=== PATIENT | male | born 1930 ===

== ENCOUNTER 2017-08-31 08:51 | Day surgery (SDC) | payer MEDICARE, MEDICAID ==
[2017-08-28 08:09] VITALS: BMI 26.9
[2017-08-31] MEDS ORDERED: Midazolam 2 MG/2 ML VIAL ONE (12:24)
[2017-08-31] MEDS ORDERED: Iodixanol 320 MG/ML 200 ML BOTTLE IV ONE (12:25)
[2017-08-31] MEDS ORDERED: Sodium Chloride 0.9% 500 ML IV SCH (13:15)
--- NOTE | 2017-08-31 21:16 | CARDCATH ---
PROCEDURE DATE: 08/31/2017 INDICATIONS: Fidel Sousa, 86-year-old male referred to [facility] for evaluation of abnormal stress test, symptoms of dyspnea on exertion and history of CABG. PROCEDURE PERFORMED: Left heart catheterization with selective left and right coronary angiogram, selective left internal mammary artery to left anterior descending graft to diagonal, obtuse marginal and right coronary artery angiogram, left ventriculogram, 6-Ethiopian right femoral arterial access, Mynx closure device for hemostasis. TECHNIQUE OF PROCEDURE: After obtaining informed consent, the patient was brought to the cardiac cath suite in post-absorptive, non-sedated state. The patient was prepped and draped in the usual sterile fashion. A 2% lidocaine was used for infiltration of anesthesia. Using modified Seldinger technique, a 6-Ethiopian sheath was introduced into the right femoral artery subsequently over a J-wire. JL4 and JR4 diagnostic catheters were used to engage the left and right coronary systems and angiograms were obtained in different orthogonal views. Subsequently, multipurpose catheters were used to engage the grafts to the RCA, diagonal and OM and elective angiograms were obtained. Subsequently, a BAINS catheter was used to engage the BAINS and selective angiogram of the BAINS to LAD was performed. ANGIOGRAPHIC FINDINGS: [place] coronary artery left main distal 90% stenosis, LAD mid 100%, diagonal high-grade 70%, circumflex 100% occluded, RCA 100% occluded, bypass circulation graft to RCA patent, ostial graft has 80% stenosis, graft to diagonal 1 patent, venous graft to obtuse marginal 1 patent with [place] diffuse OM disease, BAINS to LAD patent, [place] LAD past the touchdown site has diffuse 50% stenosis. 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 RECOMMENDATIONS: Aggressive medical management and risk factor modification. Consider stage intervention of the graft to the RCA. Salvador Mo MD
[2017-09-01 16:20] VITALS: RESP 24; O2SAT 100
== END 2017-08-31 15:45 | disposition home or self-care (01) ==
LOC: C.CATHLAB 08:51
PROVIDERS: ATTEND Internal Medicine Interventional Cardiology
DX: I25.810 Atherosclerosis of coronary artery bypass graft(s) without angina pectoris (principal)
CPT/HCPCS: 93459; 94770; J2250; J3010; J7040; Q9966

== ENCOUNTER 2017-11-17 10:36 | Emergency (ER) | payer MEDICARE, MEDICAID ==
[2017-11-17 10:37] VITALS: BMI 26.9
[2017-11-17 12:17] LABS: BASO % 0.6 % (0.0-2.0); EOS # 0.6 K/uL (0.0-0.7); EOS % 7.4 % (0.0-4.0); HEMOGLOBIN 16.2 g/dL (12.0-18.0); LYMPH # 0.8 K/uL (1.0-4.3); LYMPH % 9.7 % (20.0-40.0); MEAN CELL VOLUME 94.1 fL (80.0-94.0); MEAN CORPUSCULAR HGB CONC 35.1 g/dL (33.0-37.0); MEAN PLATELET VOLUME 7.4 fL (7.2-11.7); MONO # 0.9 K/uL (0.0-0.8); MONO % 10.5 % (0.0-10.0); NEUT # 5.8 K/uL (1.8-7.0); NEUT % 71.8 % (50.0-75.0); PLATELET COUNT 191 K/uL (130-400); RBC 4.92 Mil/uL (4.40-5.90); RED CELL DISTRIBUTION WIDTH 15.3 % (11.5-14.5); WHITE BLOOD COUNT 8.1 K/uL (4.8-10.8)
[2017-11-17 12:27] LABS: SQUAMOUS EPITHIAL < 1 /hpf (0-5); URINE BILIRUBIN NEGATIVE (NEGATIVE); URINE BLOOD NEGATIVE (NEGATIVE); URINE CLARITY Hazy (Clear); URINE COLOR Amber (YELLOW); URINE GLUCOSE (UA) NORMAL (Normal); URINE LEUKOCYTE ESTERASE 2+ Leu/uL (Negative); URINE NITRATE NEGATIVE (NEGATIVE); URINE PROTEIN 1+ mg/dL (NEGATIVE)
[2017-11-17 12:35] LABS: ALB/GLOB RATIO 1.1 (1.0-2.1); ALBUMIN 4.1 g/dL (3.5-5.0); ALT/SGPT 37 U/L (21-72); AST/SGOT 30 U/L (17-59); BLOOD UREA NITROGEN 24 mg/dL (9-20); CALCIUM 9.7 mg/dl (8.6-10.4); GFR AFRICAN-AMERICAN 58; GFR NON-AFRICAN AMERICAN 48
[2017-11-17 12:43] LABS: EOSINOPHIL 1 % (0-4); LYMPHOCYTE 7 % (20-40); MONOCYTE 8 % (0-10); NEUTROPHIL 84 % (50-75); PLATELET ESTIMATE NORMAL (NORMAL); TOTAL CELLS COUNTED 100
[2017-11-17 12:45] LABS: CK-MB 0.59 ng/mL (0.0-3.38)
--- NOTE | 2017-11-17 14:16 | CT ---
PROCEDURE: CT HEAD WITHOUT CONTRAST. HISTORY: Dizziness COMPARISON: None available. TECHNIQUE: Axial computed tomography images were obtained through the head/brain without intravenous contrast. Radiation dose: Total exam DLP = 848.03 mGy-cm. This CT exam was performed using one or more of the following dose reduction techniques: Automated exposure control, adjustment of the mA and/or kV according to patient size, and/or use of iterative reconstruction technique. FINDINGS: HEMORRHAGE: No intracranial hemorrhage. BRAIN: There are mild chronic microangiopathic changes. There is no mass, mass effect or abnormal extra-axial fluid collection. There is no territorial infarction.There are coarse atherosclerotic calcifications in the cavernous carotid arteries. VENTRICLES: There is mild age-related global parenchymal volume loss and proportionate enlargement of the ventricles and cortical sulci. CALVARIUM: The skull base and calvarium are normal. PARANASAL SINUSES: There is scattered mucoperiosteal thickening in the ethmoid air cells, the remaining included paranasal sinuses are predominantly clear MASTOID AIR CELLS: The mastoid air cells are underdeveloped. OTHER FINDINGS: None. IMPRESSION: No acute intracranial abnormality. Mild chronic microangiopathic changes and mild age-related global parenchymal volume loss.
[2017-11-17 14:21] VITALS: BP 130/78; PULSE 65; RESP 18; TEMP 98.3; O2SAT 100
--- NOTE | 2017-11-17 14:43 | C.PDOC ---
History Of Present Illness 86-year-old male, presents to the emergency department with complaints of dizziness while he was at [facility] office this morning. Patient developed sudden onset dizziness, patients held him, he did not lose consciousness or fall to the ground. No loss of consciousness. No head or neck injury. Patient denies nausea/vomiting, chest pain or shortness of breath. No other complaints at this time. Time Seen by Provider: 11/17/17 11:06 Chief Complaint (Nursing): Dizziness/Lightheaded History Per: Patient, Family History/Exam Limitations: no limitations Current Symptoms Are (Timing): Better Past Medical History Reviewed: Historical Data, Nursing Documentation, Vital Signs Vital Signs: Last Vital Signs Temp 98.3 F 11/17/17 14:20 Pulse 65 11/17/17 14:20 Resp 18 11/17/17 14:20 BP 130/78 11/17/17 14:20 Pulse Ox 100 11/17/17 14:46 - Medical History PMH: Arthritis, CHF, HTN, Hypothyroidism Denies: Chronic Kidney Disease Surgical History: CABG (2007), Pacemaker Family History: States: No Known Family Hx - Social History Hx Alcohol Use: No Hx Substance Use: No - Immunization History Hx Tetanus Toxoid Vaccination: Yes Hx Influenza Vaccination: Yes Hx Pneumococcal Vaccination: Yes Review Of Systems Except As Marked, All Systems Reviewed And Found Negative. Constitutional: Negative for: Fever, Chills Cardiovascular: Negative for: Chest Pain Respiratory: Negative for: Shortness of Breath Gastrointestinal: Negative for: Nausea, Vomiting Musculoskeletal: Negative for: Neck Pain, Back Pain Neurological: Positive for: Dizziness. Negative for: Weakness, Numbness, Headache Physical Exam - Physical Exam Appears: Well, Non-toxic, No Acute Distress Skin: Normal Color, Warm, Dry, No Rash Head: Normacephalic Eye(s): bilateral: Normal Inspection, PERRL, EOMI Nose: Normal Oral Mucosa: Moist Lips: Normal Appearing Neck: Normal ROM, No Step Off Deformity Cardiovascular: Rhythm Regular, No Murmur Respiratory: Normal Breath Sounds, No Accessory Muscle Use Extremity: Normal ROM, No Deformity, No Swelling Neurological/Psych: Oriented x3, Normal Speech ED Course And Treatment - Laboratory Results Result Diagrams: 11/17/17 12:08 11/17/17 12:08 O2 Sat by Pulse Oximetry: 100 (RA) Pulse Ox Interpretation: Normal Progress Note: CT Head, EKG, UA and bloodwork ordered and reviewed. Patients labs suggestive of UTI, will be treated with Cipro. Disposition Counseled Patient/Family Regarding: Studies Performed, Diagnosis, Need For Followup, Rx Given - Disposition Referrals: [facility] [Outside] Disposition: HOME/ ROUTINE Disposition Time: 14:40 Condition: STABLE Additional Instructions: SEGUIMIENTO CON ERWIN MDICO EN 1-2 MESA BEBER MUCHO LQUIDO USE MEDICAMENTOS SEGN SE INDICA REGRESE AL CHANCE DE EMERGENCIA SI LOS SNTOMAS EMPEORAN FOLLOW UP WITH YOUR DOCTOR IN 1-2 DAYS DRINK PLENTY OF FLUIDS USE MEDICATION DIRECTED RETURN TO EMERGENCY ROOM IF SYMPTOMS WORSEN Prescriptions: Ciprofloxacin [Cipro] 1 tab PO BID #14 tab Instructions: Urinary Tract Infections in Adults Forms: [employer] (Beninese) Print Language: SINHALA - POA Present On Arrival: None - Clinical Impression Clinical Impression: UTI (urinary tract infection) - Scribe Statement The provider has reviewed the documentation as recorded by the Scribe (Savannah Gannon) All medical record entries made by the Scribe were at my direction and personally dictated by me. I have reviewed the chart and agree that the record accurately reflects my personal performance of the history, physical exam, medical decision making, and the department course for this patient. I have also personally directed, reviewed, and agree with the discharge instructions and disposition.
--- NOTE | 2017-11-18 07:49 | CARD ---
APPROVED REPORT EKG Measurement Heart [id number] <Conclusion> Normal sinus rhythm Left bundle branch block Abnormal ECG
== END 2017-11-17 15:08 | disposition home or self-care (01) ==
LOC: C.ER 10:36
DX: N39.0 Urinary tract infection, site not specified (principal); I50.9 Heart failure, unspecified; I10 Essential (primary) hypertension; E03.9 Hypothyroidism, unspecified